=== PATIENT | male | born 1970 | race Caucasian/White ===

== ENCOUNTER 2023-02-14 09:08 | Day surgery (SDC) | payer OTHER ==
[~2023-02-14] VITALS: Ht 180.3 cm; Wt 144.4 kg
[2023-02-14] VITALS (14 sets, daily range): BP systolic 142–220; BP diastolic 76–134
[~2023-02-14 09:08] MED LIST: ACET500 PO; ARIP30 PO; Ativan1 MG PO; Catapres0.2 MG PO; Dyazide 37.5-21 EACH PO; HYDCHL25 PO; IBUP800 PO; LISI20 PO; METO50 PO; Minipress5 MG PO; POTCHL20ER PO; Seroquel Xr50 MG PO; TOPI25 PO; VENLAFAXINE HCL75 M2 PO
--- NOTE | 2023-02-14 10:00 | NUR ---
10 MG IV HYDRALAZINE GIVEN PER MD BECKWITH FOR HIGH BLOOD PRESSURE. WILL CONTINUE TO MONITOR.
[2023-02-14 10:10] LABS: Hematocrit 40.7 % (37.0-53.0); Hemoglobin 14.3 g/dL (13.5-17.5); Mean Corpuscular HGB Conc 35.1 g/dL (31.5-36.5); Mean Corpuscular Volume 88 fL (80-100); Mean Platelet Volume 9.1 fL (9.1-12.4); Platelet Count 246 K/mm3 (150-400); RDW Coefficient Variation 12.8 % (11.7-14.2); RDW Standard Deviation 41.3 fL (35.1-46.3); Red Blood Cell Count 4.61 M/mm3 (4.30-5.90); White Blood Cell Count 7.83 K/mm3 (4.00-11.30)
[2023-02-14] MEDS ORDERED: Aspir 8181 MG PO (10:12)
[2023-02-14] MEDS ORDERED: Carvedilol12.5 MG PO (10:13)
[2023-02-14] MEDS ORDERED: ATOR80 PO (10:13)
[2023-02-14] MEDS ORDERED: FISH OIL ORAL (10:13)
[2023-02-14] MEDS ORDERED: COLACE100 MG PO (10:14)
[2023-02-14] MEDS ORDERED: LIDO700A20 TOP (10:14)
[2023-02-14] MEDS ORDERED: NIFE60ER PO (10:15)
[2023-02-14] MEDS ORDERED: PRAZ5 PO (10:16)
[2023-02-14] MEDS ORDERED: MULTI VITAMIN (10:16)
[2023-02-14 10:26] LABS: International Normalized Ratio 0.99; Prothrombin Time Results 10.4 Sec (9.7-11.5)
[2023-02-14 10:34] LABS: Albumin, Blood 3.6 g/dL (3.4-5.0); Bilirubin, Total 0.3 mg/dL (0.1-1.0); Bun/Creatinine Ratio 23.6 (12.0-20.0); Calcium, Blood 8.8 mg/dL (8.5-10.1); Creatinine, Blood 0.85 mg/dL (0.60-1.20); Globulin, Blood 3.5 g/dL (2.2-4.0); Potassium, Blood 3.4 mmol/L (3.5-5.5); Total Protein, Blood 7.1 g/dL (6.4-8.2)
--- NOTE | 2023-02-14 10:38 | NUR ---
DR. BECKWITH AT THE BEDSIDE AND CONSENTED THE PATIENT. PATIENT WAS GIVEN 162 MG ASA PO ORDERED BY DR. BECKWITH.
--- NOTE | 2023-02-14 11:40 | NUR ---
PATIENT ARRIVED TO RECOVERY ROOM SITTING UPRIGHT IN RECLINER, CONVERSING APPROPRIATELY. BP ELEVATED, MD AWARE. R RADIAL TR BAND FULLY INFLATED, SITE C/D/I, SOFT/NONTENDER, NO EVIDENCE OF HEMATOMA. PATIENT DENYING ANY PAIN.
--- NOTE | 2023-02-14 11:57 | NUR ---
PATIENT AMBULATING TO RESTROOM AND VOIDING WITHOUT DIFFICULTY. R RADIAL SITE C/D/I SOFT/NONTENDER, GOOD PLEUTH WAVE, NO EVIDENCE OF HEMATOMA. PATIENT TOLERATING PO INTAKE WELL, CONVERSING APPROPRIATELY.
--- NOTE | 2023-02-14 12:31 | NUR ---
INITIAL: 2 CC OF AIR REMOVED FROM R RADIAL TR BAND. SITE C/D/I SOFT/NONTENDER, NO EVIDENCE OF HEMATOMA, GOOD PLEUTH WAVE. BP TAKEN MANUALLY. VSS ON ROOM AIR. PATIENT TOLERATING PO INTAKE AND CONVERSING APPROPRIATELY.
--- NOTE | 2023-02-14 13:29 | NUR ---
ALL AIR REMOVED FROM R RADIAL TR BAND. SITE C/D/I SOFT/NONTENDER, NO EVIDENCE OF HEMATOMA. MANUAL BLOOD PRESSURE. VSS ON RA. PATIENT DENYING ANY PAIN
--- NOTE | 2023-02-14 14:30 | NUR ---
R RADIAL TR BAND REMOVED, CLOTH DOT APPLIED ALONG WITH ARMBOARD. SITE C/D/I SOFT/NONTENDER, NO EVIDENCE OF HEMATOMA. VSS ON ROOM AIR.
--- NOTE | 2023-02-14 15:28 | NUR ---
REPORT CALLED TO MISSAEL FINN, ALL QUESTIONS ANSWERED
--- NOTE | 2023-02-14 16:10 | NUR ---
PATIENT TRANSFERRED VIA AMBULANCE AT THIS TIME TO [facility]. R RADIAL SITE WITH CLOTH DOT AND ARM BAND. C/D/I SOFT/NONTENDER, NO EVIDENCE OF BLEEDING. L [address] VSS ON ROOM AIR. ALL PATIENT BELONGINGS AND PAPERWORK LEFT WITH PATIENT. BEDSIDE REPORT GIVEN TO RITU BALLISTICS TESTER.
== END 2023-02-14 14:10 | disposition home or self-care (01) ==
LOC: MHTC 09:08
PROVIDERS: Internal Medicine Cardiovascular Disease
DX: I25.118 Atherosclerotic heart disease of native coronary artery with other forms of angina pectoris (principal); I12.9 Hypertensive chronic kidney disease with stage 1 through stage 4 chronic kidney disease, or unspecified chronic kidney disease; N18.9 Chronic kidney disease, unspecified; E66.9 Obesity, unspecified; Z79.82 Long term (current) use of aspirin; Z88.0 Allergy status to penicillin
CPT/HCPCS: 76937; 80053; 85027; 85610; 93454; 99152; 99153; A9270; C1769; C1887; C1894; J0360; J1644; J2250; J3010; J7030; J7050; Q9967

== ENCOUNTER 2023-03-27 17:19 | Emergency (ER) | payer OTHER ==
[~2023-03-27] VITALS: Ht 185.4 cm; Wt 136.1 kg
[~2023-03-27 17:19] MED LIST changes: +ATOR80 PO; +Aspir 8181 MG PO; +COLACE100 MG PO; +Carvedilol12.5 MG PO; +FISH OIL ORAL; +LIDO700A20 TOP; +MULTI VITAMIN; +NIFE60ER PO; +PRAZ5 PO
[2023-03-27 17:48] LABS: BASOPHILS ABSOLUTE AUTO 0.03 K/mm3 (0.00-0.23); BASOPHILS PERCENT AUTO 0 % (0-2); EOSINOPHILS ABSOLUTE AUTO 0.09 K/mm3 (0.00-0.68); EOSINOPHILS PERCENT AUTO 1 % (0-6); Hematocrit 36.2 % (37.0-53.0); Hemoglobin 12.5 g/dL (13.5-17.5); IMMATURE GRAN ABSOLUTE AUTO 0.03 K/mm3 (0.00-0.10); IMMATURE GRAN PERCENT AUTO 0 % (0-1); LYMPHOCYTES ABSOLUTE AUTO 2.17 K/mm3 (0.84-5.20); LYMPHOCYTES PERCENT AUTO 28 % (21-46); MONOCYTES ABSOLUTE AUTO 0.45 K/mm3 (0.16-1.47); MONOCYTES PERCENT AUTO 6 % (4-13); Mean Corpuscular HGB 30.6 pg (26.0-34.0); Mean Corpuscular HGB Conc 34.5 g/dL (31.5-36.5); Mean Corpuscular Volume 89 fL (80-100); Mean Platelet Volume 8.7 fL (9.1-12.4); NEUTROPHILS ABSOLUTE AUTO 5.03 K/mm3 (1.96-9.15); NEUTROPHILS PERCENT AUTO 64 % (41-73); Platelet Count 314 K/mm3 (150-400); RDW Coefficient Variation 12.9 % (11.7-14.2); RDW Standard Deviation 41.9 fL (35.1-46.3); Red Blood Cell Count 4.08 M/mm3 (4.30-5.90)
[2023-03-27 18:10] LABS: Albumin, Blood 3.4 g/dL (3.4-5.0); Albumin/Globulin Ratio 0.8 (0.8-1.8); Bilirubin, Total 0.3 mg/dL (0.1-1.0); Bun/Creatinine Ratio 20.2 (12.0-20.0); Calcium, Blood 8.6 mg/dL (8.5-10.1); Creatinine, Blood 0.79 mg/dL (0.60-1.20); Globulin, Blood 4.1 g/dL (2.2-4.0); Potassium, Blood 3.9 mmol/L (3.5-5.5); Total Protein, Blood 7.5 g/dL (6.4-8.2)
[2023-03-27 21:15] VITALS: BP 167/96
== END 2023-03-27 21:29 | disposition left against medical advice (07) ==
LOC: ER 17:19
PROVIDERS: Physician Assistant
DX: R03.0 Elevated blood-pressure reading, without diagnosis of hypertension (principal); R42 Dizziness and giddiness; Z53.21 Procedure and treatment not carried out due to patient leaving prior to being seen by health care provider; Z88.0 Allergy status to penicillin; Z91.011 Allergy to milk products
CPT/HCPCS: 71046; 80053; 84484; 85025